=== PATIENT | male | born 1975 | race African-American/Black ===

== ENCOUNTER 2018-03-26 06:42 | Emergency (ER) | payer SELFPAY ==
[2018-03-26] MEDS ORDERED: ASPIRIN 81 MG TABLET, CHEWABLE PO ONE (07:05)
--- NOTE | 2018-03-26 07:22 | EKG REPORT ---
SEVERITY:- NORMAL ECG - SINUS RHYTHM : Confirmed by: Vern Nicole MD 26-Mar-2018 07:21:40
[2018-03-26 07:51] LABS: ABSOLUTE EOSINOPHILS # (AUTO) 0.3 10^3/uL (0.0-0.6); ABSOLUTE LYMPHOCYTES (AUTO) 2.9 10^3/uL (0.5-4.7); ABSOLUTE MONOCYTES (AUTO) 0.4 10^3/uL (0.1-1.4); ABSOLUTE NEUT (AUTO) 3.2 10^3/uL (1.7-8.2); BASOPHILS % (AUTO) 0.6 % (0-2); EOSINOPHILS % (AUTO) 3.9 % (0-6); HEMATOCRIT 40.6 % (37.9-51.0); HEMOGLOBIN 13.6 g/dL (13.5-17.0); LYMPHOCYTES % (AUTO) 42.4 % (13-45); MEAN CORPUSCULAR HEMOGLOBIN 27.4 pg (27.0-33.4); MEAN CORPUSCULAR HGB CONC 33.5 g/dL (32.0-36.0); MEAN CORPUSCULAR VOLUME 82 fl (80-97); MONOCYTES % (AUTO) 6.3 % (3-13); PLATELET COUNT 317 10^3/uL (150-450); RED BLOOD COUNT 4.96 10^6/uL (4.35-5.55); RED CELL DISTRIBUTION WIDTH 13.8 % (11.5-14.0); SEGMENTED NEUTROPHILS % (AUTO) 46.8 % (42-78); TOTAL CELLS COUNTED % (AUTO) 100 %; WHITE BLOOD COUNT 6.8 10^3/uL (4.0-10.5)
[2018-03-26 08:09] LABS: CREATINE KINASE MB 0.57 ng/mL (<4.55)
--- NOTE | 2018-03-26 08:09 | ER Document Report ---
ED Cardiac - General Chief Complaint: Chest Pain Stated Complaint: CHEST PAIN Time Seen by Provider: 03/26/18 07:32 Notes: This is a 43-year-old -[place] male with no major medical problems to the emergency department with a several day history of right-sided chest pain. Patient states that he was sick last week and had a viral type illness with nausea and vomiting and body aches. Yesterday began having some achy feeling in the right side of his chest. Nothing seems to make it better or worse. Denies any change in lifting. Denies any cough or shortness of breath. No fever, chills, sweats. No other major issues at this time. No prior history of DVT or pulmonary embolism. No prior history of heart problems. No family medical problems such as early onset coronary artery disease, sudden cardiac or other concerning family medical problems. Patient is not on any medications. Does not smoke. Does not have diabetes. Works as a mortician. - HPI Patient complains to provider of: Chest pain Chest pain location: Under breast Quality of pain: Sharp Chest pain radiation location: None Severity now: Mild Severity at worst: Moderate Pain level currently: 2 Cardiac risk factors: None Positive cardiac history: No Associated symptoms: None Similar symptoms previously: No - Related Data Allergies/Adverse Reactions: No Known Allergies Allergy (Unverified 03/26/18 07:20) Past Medical History - General Information source: Patient - Social History Smoking Status: Never Smoker Cigarette use (# per day): No Frequency of alcohol use: None Drug Abuse: None Lives with: Spouse/Significant other Family History: Reviewed & Not Pertinent Patient has suicidal ideation: No Patient has homicidal ideation: No - Medical History Medical History: Negative Renal/ Medical History: Denies: Hx Peritoneal Dialysis Past Surgical History: Reports: Hx Abdominal Surgery - lap hernia repair Review of Systems - Review of Systems Notes: Constitutional: denies: Chills, Diaphoresis, Fever, Malaise, Weakness EENT: denies: Eye discharge, Blurred vision, Tearing, Double vision, Nose congestion, Nose discharge, Throat swelling, Mouth pain Cardiovascular: denies: Palpitations, Heart racing, Orthopnea, Dyspnea,. Does complain of pain on the right superior chest chest pain Respiratory: denies: Cough, Hurts to breathe, Wheezing, Shortness of breath Gastrointestinal: denies: Abdominal pain, Diarrhea, Nausea, Vomiting, Black stools, bright red blood in stool Genitourinary: denies: Burning, Dysuria, Discharge, Frequency, Flank pain, Hematuria Musculoskeletal: denies: Joint pain, Joint swelling, Muscle pain, Muscle stiffness, back pain Hematologic/Lymphatic: denies: Anemia, Easy bleeding, Easy bruising, Blood clots Neurological/Psychological: denies: Confusion, Dementia, Depression, Loss of consciousness Skin: No lesions, no masses, no skin breakdown, no abscesses Physical Exam - Vital signs Vitals: Resp Pulse Ox 8 L 100 03/26/18 06:47 03/26/18 06:47 Interpretation: Normal - General General appearance: Appears well, Alert - HEENT Head: Normocephalic, Atraumatic Eyes: Normal Pupils: PERRL - Respiratory Respiratory status: No respiratory distress Chest status: Nontender Breath sounds: Normal Chest palpation: Normal - Cardiovascular Rhythm: Regular Heart sounds: Normal auscultation Murmur: No Notes: Mild reproducible right-sided chest wall pain with deep palpation. - Abdominal Inspection: Normal Distension: No distension Bowel sounds: Normal Tenderness: Nontender Organomegaly: No organomegaly - Back Back: Normal, Nontender - Extremities General upper extremity: Normal inspection, Nontender, Normal color, Normal ROM , Normal temperature General lower extremity: Normal inspection, Nontender, Normal color, Normal ROM , Normal temperature, Normal weight bearing. No: Rahul's sign - Neurological Neuro grossly intact: Yes Cognition: Normal Orientation: AAOx4 Mal Coma Scale Eye Opening: Spontaneous Mal Coma Scale Verbal: Oriented Mal Coma Scale Motor: Obeys Commands Mal Coma Scale Total: 15 Speech: Normal Motor strength normal: LUE, RUE, LLE, RLE Sensory: Normal - Psychological Associated symptoms: Normal affect, Normal mood - Skin Skin Temperature: Warm Skin Moisture: Dry Skin Color: Normal Course - Re-evaluation Re-evalutation: 03/26/18 10:58 PERC score negative/0. Heart score of 0. Pain is on the right side of the chest. D-dimer was less than 0.27 and unlikely PE. Unlikely this represents major cardiac event. Strict warning signs were given to the patient. he did feel a little bit better after Toradol. 03/26/18 11:00 03/26/18 11:12 Patient did receive a GI cocktail and some Pepcid and states that that actually helped quite a bit. More likely this does represent some gastritis however strict instructions have been given to the patient that if symptoms get worse, he develops shortness of breath, arm pain or any other symptoms he should return. Strict instructions were also given that he needs follow-up with his primary care doctor for repeat evaluation and outpatient testing. Patient verbalized understanding these instructions. At this time feel comfortable discharging in stable condition 03/26/18 11:15 Laboratory 03/26/18 03/26/18 03/26/18 06:55 06:55 06:55 WBC 6.8 RBC 4.96 Hgb 13.6 Hct 40.6 MCV 82 MCH 27.4 MCHC 33.5 RDW 13.8 Plt Count 317 Seg Neutrophils % 46.8 Lymphocytes % 42.4 Monocytes % 6.3 Eosinophils % 3.9 Basophils % 0.6 Absolute Neutrophils 3.2 Absolute Lymphocytes 2.9 Absolute Monocytes 0.4 Absolute Eosinophils 0.3 Absolute Basophils 0.0 D-Dimer Sodium Cancelled Potassium Cancelled Chloride Cancelled Carbon Dioxide Cancelled Anion Gap Cancelled BUN Cancelled Creatinine Cancelled Est GFR ( Amer) Cancelled Est GFR (Non-Af Amer) Cancelled Glucose Cancelled Calcium Cancelled Total Bilirubin Cancelled Direct Bilirubin Cancelled Neonat Total Bilirubin Cancelled Neonat Direct Bilirubin Cancelled Neonat Indirect Bili Cancelled AST Cancelled ALT Cancelled Alkaline Phosphatase Cancelled Creatine Kinase Cancelled CK-MB (CK-2) 0.57 Troponin I < 0.012 Total Protein Cancelled Albumin Cancelled Lipase 03/26/18 03/26/18 03/26/18 06:55 08:40 09:22 WBC RBC Hgb Hct MCV MCH MCHC RDW Plt Count Seg Neutrophils % Lymphocytes % Monocytes % Eosinophils % Basophils % Absolute Neutrophils Absolute Lymphocytes Absolute Monocytes Absolute Eosinophils Absolute Basophils D-Dimer < 0.27 Sodium Cancelled 146.0 H Potassium Cancelled 3.8 Chloride Cancelled 105 Carbon Dioxide Cancelled 29 Anion Gap Cancelled 12 BUN Cancelled 7 Creatinine Cancelled 0.64 Est GFR ( Amer) Cancelled > 60 Est GFR (Non-Af Amer) Cancelled > 60 Glucose Cancelled 97 Calcium Cancelled 9.4 Total Bilirubin Cancelled 0.3 Direct Bilirubin Cancelled 0.2 Neonat Total Bilirubin Cancelled Not Reportable Neonat Direct Bilirubin Cancelled Not Reportable Neonat Indirect Bili Cancelled Not Reportable AST Cancelled 38 ALT Cancelled 52 Alkaline Phosphatase Cancelled 67 Creatine Kinase Cancelled 108 CK-MB (CK-2) Troponin I Total Protein Cancelled 7.6 Albumin Cancelled 4.1 Lipase 03/26/18 09:22 WBC RBC Hgb Hct MCV MCH MCHC RDW Plt Count Seg Neutrophils % Lymphocytes % Monocytes % Eosinophils % Basophils % Absolute Neutrophils Absolute Lymphocytes Absolute Monocytes Absolute Eosinophils Absolute Basophils D-Dimer Sodium Potassium Chloride Carbon Dioxide Anion Gap BUN Creatinine Est GFR ( Amer) Est GFR (Non-Af Amer) Glucose Calcium Total Bilirubin Direct Bilirubin Neonat Total Bilirubin Neonat Direct Bilirubin Neonat Indirect Bili AST ALT Alkaline Phosphatase Creatine Kinase CK-MB (CK-2) Troponin I Total Protein Albumin Lipase 51.6 Chest X-Ray 03/26/18 07:05 IMPRESSION: NO ACUTE RADIOGRAPHIC FINDING IN THE CHEST. - Vital Signs Vital signs: Temp Pulse Resp BP Pulse Ox 39 H 126/85 H 100 03/26/18 11:01 03/26/18 11:01 03/26/18 11:01 - Laboratory Result Diagrams: 03/26/18 06:55 03/26/18 09:22 Laboratory results interpreted by me: 03/26/18 09:22 Sodium 146.0 H - EKG Interpretation by [place] EKG shows normal: Sinus rhythm, Moro, Intervals, QRS Complexes, ST-T Waves Additional EKG results interpreted by pr: 03/26/18 10:30 Normal EKG Discharge - Discharge Clinical Impression: Reflux esophagitis Chest pain Qualifiers: Chest pain type: unspecified Qualified Code(s): R07.9 - Chest pain, unspecified Condition: Good Disposition: HOME, SELF-CARE Instructions: Antacid Therapy ([facility]), Esophagitis ([facility]), Chest Pain of Unclear Cause ([facility]) Additional Instructions: It will be very important that you follow-up with her regular doctor for more testing. It does not appear that you have had heart attack however if symptoms persist you will need to be re-seen. It may be beneficial to have your doctor talk to you about scheduling an outpatient stress test. Begin taking Zantac twice a day. Prescriptions: Ranitidine HCl [Zantac] 150 mg PO BID 10 Days #20 tablet Forms: Return to Work Referrals: LAUREL JIMENEZ MD [ACTIVE STAFF] - Follow up in 3-5 days
[2018-03-26 08:13] LABS: TROPONIN I < 0.012 ng/mL
--- NOTE | 2018-03-26 08:13 | RADIOLOGY REPORT (SQ) ---
EXAM DESCRIPTION: CHEST SINGLE VIEW COMPLETED DATE/TIME: 03/26/2018 7:23 am REASON FOR STUDY: chest pain COMPARISON: None. EXAM PARAMETERS: NUMBER OF VIEWS: One view. TECHNIQUE: Single frontal radiographic view of the chest acquired. RADIATION DOSE: NA LIMITATIONS: None. FINDINGS: LUNGS AND PLEURA: No opacities, masses or pneumothorax. No pleural effusion. MEDIASTINUM AND HILAR STRUCTURES: No masses. Contour normal. HEART AND VASCULAR STRUCTURES: Heart normal in size. Normal vasculature. BONES: No acute findings. HARDWARE: None in the chest. OTHER: No other significant finding. IMPRESSION: NO ACUTE RADIOGRAPHIC FINDING IN THE CHEST. TECHNICAL DOCUMENTATION: JOB ID: [id number] [employer]- All Rights Reserved Reading location - IP/workstation name: [facility]-ON LICENSE OF [facility]-[email or web address]
[2018-03-26] MEDS ORDERED: KETOROLAC TROMETHAMINE INJ/PF 30 MG/1 ML SDV IV ONE (08:19)
[2018-03-26 09:56] LABS: ALANINE AMINOTRANSFERASE 52 U/L (21-72); ALBUMIN 4.1 g/dL (3.5-5.0); ALKALINE PHOSPHATASE 67 U/L (38-126); ANION GAP 12 (5-19); ASPARTATE AMINO TRANSFERASE 38 U/L (17-59); BILIRUBIN,DIRECT 0.2 mg/dL (0.0-0.4); BILIRUBIN,TOTAL 0.3 mg/dL (0.2-1.3); BLOOD UREA NITROGEN 7 mg/dL (7-20); CALCIUM 9.4 mg/dL (8.4-10.2); CARBON DIOXIDE 29 mmol/L (22-30); CHLORIDE 105 mmol/L (98-107); CREATINE KINASE 108 U/L (55-170); GLUCOSE 97 mg/dL (75-110); POTASSIUM 3.8 mmol/L (3.6-5.0); TOTAL PROTEIN 7.6 g/dL (6.3-8.2)
[2018-03-26] MEDS ORDERED: FAMOTIDINE 20 MG TABLET PO ONE (10:26)
[2018-03-26] MEDS ORDERED: METOCLOPRAMIDE HCL ORAL SOLN 10 MG/10 ML UDCUP PO ONE (10:26)
[2018-03-26] MEDS ORDERED: LIDOCAINE 2% VISCOUS SOLN 20 ML UDCUP PO ONE (10:26)
[2018-03-26] MEDS ORDERED: MAG HYDROX/AL HYDROX/SIMETH SUSP 30 ML UDCUP PO ONE (10:26)
[2018-03-26 11:04] VITALS: BP 126/85
== END 2018-03-26 11:47 | disposition home or self-care (01) ==
LOC: ER 06:42
DX: K21.0 Gastro-esophageal reflux disease with esophagitis (principal); R07.9 Chest pain, unspecified; R11.2 Nausea with vomiting, unspecified; M79.1 Myalgia
CPT/HCPCS: 93005; 99285; 96374; 36415; 82553; 82550; 83690; 85025; 80053; 84484; 85379; 71045; 93010; J3490; J1885